=== PATIENT | female | born 1945 | race Caucasian/White ===

== ENCOUNTER 2025-02-11 19:45 | Emergency (ER) | payer MEDICARE, MEDICAID, SELFPAY ==
[2025-02-11 19:49] VITALS: PULSE 82; RESP 18; O2SAT 98
[2025-02-11 19:55] VITALS: BP 117/70; PULSE 74; RESP 24; TEMP 37.1; O2SAT 95
[2025-02-11 19:56] VITALS: PULSE 82; RESP 18; O2SAT 98; BMI 23.3
--- NOTE | 2025-02-11 20:00 | EDNOTE_ITS ---
ED Fall Injury RME/HPI General Chief Complaint: Fall Stated Complaint: FALL Time Seen by Provider: 02/11/25 19:51 Arrival date/time: 02/11/25 19:45 RME / HPI RME / HPI Narrative: Dr. Mcfarland?s Main ED Evaluation: 80yo female with a history of dementia, HTN, DM BIBA from home presents to the ED for a chief complaint of a fall. Per EMS, patient had a witnessed trip and fall by family. She did hit her head, but no loss of consciousness. Patient is not on any blood thinners. Patient denies any headache, neck pain, chest pain, abdominal pain, shortness of breath, extremity pain, vision changes, or any other associated symptoms. Blood sugar en route was 192. NKA. Related Data Home Medications ?Medication ?Instructions ?Recorded ?Confirmed aspirin 81 mg chewable tablet 81 mg PO QDAY 01/12/19 0 12/27/21 atorvastatin 20 mg tablet 20 mg PO QDAY 01/12/1912/27 glipizide 2.5 mg tablet, extended 2.5 mg PO QAM 12/27/21 release 24 hr metformin 1,000 mg tablet 1,000 mg PO BIDWM 01/12/19 0 12/27/21 pramipexole 0.125 mg tablet 0.125 mg PO QDAY 01/12/19 12/27/21 sitagliptin phosphate 100 mg 100 mg PO QDAY 01/12/19 0 12/27/21 tablet (Januvia) azelastine 0.05 % eye drops 1 drp ophthalmic (eye) BID 12/27/21 12/27/21 cetirizine 10 mg tablet 10 mg PO QDAY 12/27/2112/27 diclofenac sodium 1 % topical gel 1 ea topical BID PRN Pain 12/27/21 12/27/21 fluticasone propionate 50 1 ea intranasal QDAY 2 12/27/21 mcg/actuation nasal spray,suspension levothyroxine 50 mcg tablet 50 mcg PO QDAY 12/27/21 Previous Rx's ?Medication ?Instructions ?Recorded prednisone 10 mg tablet 10 mg PO QDAY #7 tabs levofloxacin 750 mg tablet 750 mg PO Q24H #10 tabs Allergies Allergy/AdvReac Type Severity Reaction Status Date / Time No Known Allergies Allergy Verified 12/27/21 12:46 Review of Systems Review of Systems Systems Reviewed: All systems reviewed, normal except as documented Past Medical History Past Medical History NEUROLOGIC: Positive Dementia and Alzheimer's Disease CARDIAC: Positive Cardiac Disorders and Hypertension; Negative Congestive Heart Failure RESPIRATORY: Negative Chronic Obstructive Pulmonary Disease (COPD) GENITOURINARY: Negative Renal Disease MUSCULOSKELETAL: Positive Musculoskeletal Disorders ENDOCRINE: Positive Diabetes Mellitus Type 2; Negative Diabetes Mellitus Type 1 OTHER HISTORY: Positive Blood Transfusions Social History SMOKING STATUS: Never smoker SUBSTANCE USE: does not use ED Exam Narrative Physical exam: GENERAL APPEARANCE: alert and oriented x 4, well-developed, well-nourished, no acute distress VITALS: All vitals were reviewed and the pulse ox is 95% on room air, which is normal according to my interpretation. HEENT: Normocephalic, old ecchymosis to the left chin, minor abrasion to the right forehead; pupils equal, round, reactive to light; EOMI; mucous membranes pink, moist; oropharynx clear NECK: Supple LUNGS: CTABL; no wheezes, no rales, no rhonchi HEART: Regular rate, regular rhythm; normal S1, S2; no murmurs ABDOMEN: non distended; normal BS; soft, no tenderness, no guarding, no rebound; no masses, no organomegaly, no hernia BACK: no CVA tenderness EXTREMITIES: very minor abrasion to the right knee, no deformities; no edema NEUROLOGIC: awake; alert and oriented x4; cranial nerves II-XII grossly intact; no focal sensory or motor deficits PSYCHIATRIC: appropriate mood and affect SKIN: warm, dry, normal color; 25 cm skin tear to the right forearm, 8 cm curvelinear skin tear to the right forearm, 2 3cm skin tears to the right forearm, 3.5 cm curvelinear skin tear to the right wrist, 4.5 cm skin tear to the right hand Course Quality Measures none Orders Category Date Time Status CT cervical spine wo con Stat Exams 02/11/25 20:[address] head/brain wo con Stat Exams 02/11/25 20:00 Completed Vital Signs Vital signs: Vital Signs Temperature 98.7 F 02/11/25 19:55 Pulse Rate 74 02/11/25 19:55 Respiratory Rate 24 H 02/11/25 19:55 Blood Pressure 117/70 02/11/25 19:55 Pulse Oximetry (%) 95 02/11/25 19:55 Oxygen Delivery Method Room Air 02/11/25 19:55 PROCEDURES: Procedure Comment 5 skin tears as described in the physical exam above (at the right upper extremity) were irrigated extensively prior to having skin glue and a total of 20 steri strips applied. Fall MDM Narrative MDM Narrative:: Scribe Attestation: 02/11/25 - Marlena Irizarry am scribing for and in the presence of Dr. Mcfarland. Blood glucose here in the ED is 184. CT head unremarkable. CT cervical spin shows a 7 mm chip fracture of C4. Patient is currently asymptomatic and is stable for outpatient follow-up. Patient data External records reviewed:: [facility] previous records (Per chart review, patient was seen here on 01/20/24 for pneumonia.) and EMS form Clinical information provided by:: patient and EMS Social determinants that could affect healthcare access:: none Patient has the following chronic illnesses:: dementia, HTN, DM How is presenting disease/condition affected by chronic disease/condition?: uneffected by Evaluation data The following diagnostics were reviewed and interpreted by me:: radiology exam(s) Lab and/or radiology exams considered but not ordered:: none Interpretation Summary: [facility] Report Signed Patient: GRACIELA CHAMORRO Record#: [id number] Birthdate: 1945 Age/Sex: 80 / F Location: [facility] Attending Dr: Ordering Physician: Ashley Mcfarland MD Date of Service: 02/11/25 Procedure(s): CT head/brain wo con Accession Number(s): [id number] cc: Sukhjinder Mejia MD; Carlos Hicks MD; Ashley Mcfarland MD~ Examination: CT brain head without contrast. 2-D sagittal coronal reconstructions Date and time of exam:February 11, 20252022 hours INDICATIONS: Ground-level fall today with age of the head, head pain CTDI: vol (mGy):44.8 DLP: (mGycm):A there is a Technique: Multiple CT axial sections of the brain have been obtained, 5 mm slice thickness. Contrast has not been administered. 2-D sagittal, coronal reconstructions have been obtained Low dose protocols were performed. One or more of the following dose reduction techniques were used; automated exposure control, adjustment of the mA and/or KV according to patient size, use of iterative reconstruction technique. Findings: No significant ventricular enlargement. Stable encephalomalacia posterior right parietal lobe compared with January 20, 2024 and stable encephalomalacia right occipital lobe yearly Inge Jolly CT abdomen immediately 8 Document as this patient nor assess liver disease by Intra-axial or extra-axial hemorrhage density is not seen. No mass effect or midline shift Basal cisterns are not remarkable. Fourth ventricle is midline. Cranial vault intact. Impression: Negative for acute hemorrhage, mass effect or midline shift Dictated By: Carlos Hicks MD Signed By: <Electronically signed by Carlos Hicks MD in OV> 02/11/252100 [facility] Report Signed Patient: GRACIELA CHAMORRO Record#: [id number] Birthdate: 1945 Age/Sex: 80 / F Location: [facility] Attending Dr: Ordering Physician: Ashley Mcfarland MD Date of Service: 02/11/25 Procedure(s): CT cervical spine wo con Accession Number(s): [id number] cc: Sukhjinder Mejia MD; Carlos Hicks MD; Ashley Mcfarland MD~ Examination: CT cervical spine without contrast 2-D sagittal reconstructions 2-D coronal reconstructions 3-D reconstructions. Exam date and time:February 11, 20252022 hours INDICATIONS: Patient fell today with into the neck, neck pain CTDI:vol (mGy) 7.03 DLP: (mGycm) 150 Technique: Multiple 2 mm axial sections of the cervical spine have been obtained. The coronal and sagittal reconstructions have been obtained. 3-D reconstructions have been obtained. Low dose protocols were performed. One or more of the following dose reduction techniques were used; automated exposure control, adjustment of the mA and/or KV according to patient size, use of iterative reconstruction technique. Findings: Acute chip fracture off the anterior inferior margin C4 without major displacement Satisfactory alignment vertebral bodies The pedicles and laminae appear intact Alignment of posterior spinous processes intact IMPRESSION: 7 mm acute chip fracture off the anterior inferior margin C4 Dictated By: Carlos Hicks MD Signed By: <Electronically signed by Carlos Hicks MD in OV> 02/11/252057 Medications / Prescriptions Medications or Prescriptions considered but not ordered:: none Medication administrations:: none Consultations Consultation(s) initiated? (list below): No Diagnosis Fall Differential Diagnosis: syncope and other (mechanical fall, dizziness) Most likely diagnosis given after review of the tests above:: see clinical impression below Admission Indicated Admission indicated?: not indicated Admission Request Was there a request for admission?: No Disposition Plan Disposition Plan: Discharge Discharge Attestation Discharge Attestation: The patient and all family members were given an opportunity to ask questions and understood the discharge instructions. Discharge instructions specifically effects, indications for sooner follow up or return to the emergency department, and the expected course of current diagnosis. Patient condition: Stable Discharge Plan Plan Patient Disposition: HOME (Self Care) Prescriptions/Referrals Prescriptions/Med Rec: No Action atorvastatin 20 mg tablet 20 mg PO QDAY Patient Comments: TAKE 1 TABLET BY MOUTH EVERY DAY glipizide 2.5 mg tablet extended release 24hr 2.5 mg PO QAM Patient Comments: TAKE 1 TABLET BY MOUTH EVERY MORNING metformin 1,000 mg tablet 1,000 mg PO BIDWM Patient Comments: TAKE 1 TABLET BY MOUTH TWICE A DAY pramipexole 0.125 mg tablet 0.125 mg PO QDAY Patient Comments: TAKE 1 TABLET BY MOUTH EVERY DAY aspirin 81 mg tablet,chewable 81 mg PO QDAY Patient Comments: TAKE 1 TABLET BY MOUTH EVERY DAY Januvia 100 mg tablet 100 mg PO QDAY Patient Comments: TAKE 1 TABLET BY MOUTH EVERY DAY azelastine 0.05 % drops 1 drp OPHTHALMIC (EYE) BID Patient Comments: INSTILL 1 DROP INTO AFFECTED EYE TWICE A DAY FOR 10 DAYS cetirizine 10 mg tablet 10 mg PO QDAY Patient Comments: TAKE 1 TABLET BY MOUTH EVERY DAY levothyroxine 50 mcg tablet 50 mcg PO QDAY Patient Comments: TAKE 1 TABLET BY MOUTH EVERY DAY fluticasone propionate 50 mcg/actuation spray,suspension 1 ea INTRANASAL QDAY Patient Comments: USE 1 SPRAY IN EACH NOSTRIL ONCE A DAY diclofenac sodium 1 % gel 1 ea TOPICAL BID PRN (Reason: Pain) Patient Comments: APPLY 1 GRAM TO AFFECTED AREA TWICE DAILY NEEDED FOR PAIN prednisone 10 mg tablet 10 mg PO QDAY Qty: 7 0RF levofloxacin 750 mg tablet 750 mg PO Q24H Qty: 10 0RF Referrals: Sukhjinder Mejia MD [Primary Care Provider] - In 1 week Problem List Clinical Impression: Fall, Multiple skin tears, C4 cervical fracture Patient/Caregiver Discharge Instructions Education Materials: Fx Neck Spine, ED Skin Avulsion, ED Laceration: Skin Adhesive Additional Instructions: Your CT scan shows a minor chip fracture to the C4 vertebrae. At this time there is no specific treatment other than pain control as needed. Return to the emergency department if symptoms change, do not improve, or other concerns. Print Language: Thai Stand Alone Forms: [facility] Award Info., Patient Portal Info Letter
--- NOTE | 2025-02-11 20:22 | PC.NURSE ---
THIS RN SPOKE TO TREVON DOVEENA ABOUT THE WITNESS FALL. JOSÉ MIGUEL STATES THAT SHE WAS HELPING PT WALK TO RESTROOM AND PT FEEL HEAD FIRST TO THE GROUND. RUBY STATES SHE HAS HAD A HX OF FALLS IN THE PAST. JOSÉ MIGUEL STATES THAT IT MIGHT BE RELATED TO HER HIP
--- NOTE | 2025-02-11 21:43 | PC.NURSE ---
WOUNDS CLEANED BY WILL RN. PROVIDER WAS NOTIFIED THAT WOUNDS WERE CLEANED
[2025-02-11 22:51] VITALS: BP 123/52; PULSE 59; RESP 18; TEMP 37.2; O2SAT 97
== END 2025-02-11 22:53 | disposition home or self-care (01) ==
PROVIDERS: Emergency Provider Emergency Medicine; PCP Family Medicine
DX: S12.300A Unspecified displaced fracture of fourth cervical vertebra, initial encounter for closed fracture (principal); S51.811A Laceration without foreign body of right forearm, initial encounter; S61.511A Laceration without foreign body of right wrist, initial encounter; S61.411A Laceration without foreign body of right hand, initial encounter; W01.0XXA Fall on same level from slipping, tripping and stumbling without subsequent striking against object, initial encounter
CPT/HCPCS: 70450; 72125; 99284